=== PATIENT | female | born 1990 | race Caucasian/White ===

== ENCOUNTER 2017-07-09 07:37 | Emergency (ER) | payer MEDICAID, OTHER ==
[~2017-07-09] VITALS: Ht 180.3 cm; Wt 184.2 kg
[~2017-07-09 07:37] MED LIST: ALBUAER3 INH; AZIT250T3 PO; GABA100C4 PO; PERC10TA27 PO; PRED20 PO
[2017-07-09 07:42] VITALS: BP 166/95; PULSE 77; RESP 16; TEMP 99.1; O2SAT 100
[2017-07-09] MEDS ORDERED: ERYT250C PO (07:58)
[2017-07-09] MEDS ORDERED: TRAM50TA PO (07:58)
--- NOTE | 2017-07-09 08:00 | PD ---
HPI Chief Complaint: Oral / Dental Pain or Problem Time Seen by Provider: 07:51 Travel History International Travel<30 days: No Contact w/Intl Traveler<30days: No Traveled to known affect area: No History of Present Illness HPI This patient complains of dental pain. Has a right bottom jaw molar that's mostly rotted out. She is having difficulty arranging dental care. No injury or fever. Symptoms severity is moderate PFSH Past Medical History Medical History: Denies Significant Hx Asthma: Yes Bipolar Disorder: Yes Anxiety: Yes Depression: Yes High Cholesterol: Yes Diminished Hearing: No Deep Vein Thrombosis: Yes (RIGHT ARM: JANUARY 2016) Hypertension: Yes Kidney Stones: Yes Musculoskeletal: Yes (MULTIPLE FX'S: "BROKEN LEGS, ANKLES, ARMS AND RIBS" ) Immunizations Current: Yes Migraines: Yes Pneumonia: Yes Thyroid Disease: Yes (HYPOTHYROIDISM?) ?: Unknown : 0 Past Surgical History Surgical History: No Previous Surgery Genitourinary Surgery: Yes (KIDNEY TRANSPLANT AT 9 MONTHS OF AGE) Oral Surgery: Yes (FRACTURED TEETH) Social History Alcohol Use: No Tobacco Use: Yes (10/10 PPD) Substance Use: No Allergies-Medications (Allergen,Severity, Reaction): Coded Allergies: acetaminophen (Unverified Allergy, Severe, RESP. FAILURE, 07/09/17) penicillin G (Unverified Allergy, Severe, Shortness of Breath, 07/09/17) propoxyphene (Unverified Allergy, Severe, RESP. FAILURE, 07/09/17) iodine (Unverified Allergy, Mild, RASH, 07/09/17) potassium iodide (Unverified Allergy, Mild, RASH, 07/09/17) povidone-iodine (Unverified Allergy, Mild, RASH, 07/09/17) sodium iodide (Unverified Allergy, Mild, RASH, 07/09/17) sodium iodide (Unverified Allergy, Mild, RASH, 07/09/17) Reported Meds & Prescriptions Reported Meds & Active Scripts Active No Active Prescriptions or Reported Medications Review of Systems General / Constitutional: No: Fever Eyes: No: Visual changes HENT: Positive: Dental Difficulties, No: Headaches Cardiovascular: No: Chest Pain or Discomfort Respiratory: No: Shortness of Breath Gastrointestinal: No: Abdominal Pain Genitourinary: No: Dysuria Musculoskeletal: No: Pain Skin: No Rash Neurologic: No: Weakness Psychiatric: No: Depression Endocrine: No: Polydipsia Hematologic/Lymphatic: No: Easy Bruising Physical Exam Narrative NECK: Symmetrical appearance, midline trachea. No mass or crepitus. Thyroid without enlargement, tenderness, or mass. SKIN: Focused skin assessment reveals no rash or ulcers. Skin is warm and dry. Palpation shows no induration or nodules. Oral cavity: Right rear bottom jaw molar is rotted away. Surrounding gingiva looks pink and healthy. No abscess noted. Data Data Last Documented VS Vital Signs Date Time Temp Pulse Resp B/P (MAP) Pulse Ox O2 Delivery O2 Flow Rate FiO2 07/09/17 07:42 99.1 77 16 166/95 (118) 100 MDM Medical Decision Making Medical Screen Exam Complete: Yes Emergency Medical Condition: Yes Medical Record Reviewed: Yes Differential Diagnosis Cavity, gingivitis, gingival abscess Narrative Course I have reviewed the patient's electronic medical record. I wrote her some erythromycin given her penicillin allergy and something for pain. Needs dental follow-up. Diagnosis Primary Impression: Pain, dental Additional Instructions: The patient was advised to follow up with dentist . The patient was warned about potential sedation for the medications they will receive on prescription. Med/Other Pt SpecificInfo: Prescription(s) given Scripts Erythromycin Base (Erythromycin) 250 Mg Capsule.dr 250 MG PO Q8HR, #20 Prov: Rodolfo Walter MD 07/09/17 Tramadol (Tramadol) 50 Mg Tab 50 MG PO Q6H Y for PAIN, #20 TAB 0 Refills Prov: Rodolfo Walter MD 07/09/17 Disposition: 01 DISCHARGE HOME Condition: Stable Rodolfo Walter MD Jul 09, 2017 08:00
== END 2017-07-09 08:17 | disposition home or self-care (01) ==
LOC: PHED 07:37
DX: K08.89 Other specified disorders of teeth and supporting structures (principal); E78.00 Pure hypercholesterolemia, unspecified; I10 Essential (primary) hypertension; J45.909 Unspecified asthma, uncomplicated; Z86.718 Personal history of other venous thrombosis and embolism; Z88.0 Allergy status to penicillin; F17.210 Nicotine dependence, cigarettes, uncomplicated
CPT/HCPCS: 99284

== ENCOUNTER 2018-01-04 04:03 | Emergency (ER) | payer OTHER ==
[~2018-01-04] VITALS: Ht 180.3 cm; Wt 167.0 kg
[~2018-01-04 04:03] MED LIST changes: -ALBUAER3 INH; -AZIT250T3 PO; +ERYT250C PO; -GABA100C4 PO; -PERC10TA27 PO; -PRED20 PO; +TRAM50TA PO
[2018-01-04 04:12] VITALS: BP 130/90; PULSE 105; RESP 18; TEMP 98.3; O2SAT 98
[2018-01-04] MEDS ORDERED: LIDOCAINE 1%/EPINEPHrine 1:100,000 SOLN 20 ML VIAL ONE (04:40)
[2018-01-04] MEDS ORDERED: LIDOCAINE 2%/EPINEPHrine 1:100,000 30ML MDV INFIL ONE (04:45)
[2018-01-04] MEDS ORDERED: DOXY100C PO (04:55)
[2018-01-04] MEDS ORDERED: BACT800T5 PO (04:55)
[2018-01-04] MEDS ORDERED: TRAM50TA PO (04:58)
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
[2018-01-04] MEDS ORDERED: oxyCODONE/ACETAMINOPHEN 7.5 MG/325 MG TAB PO ONE (05:00)
[2018-01-04] MEDS ORDERED: SULFAMETHOXAZOLE-TRIMETHOPRIM DS 800-160 MG TAB PO ONE (05:15)
[2018-01-04] MEDS ORDERED: DOXYCYCLINE HYCLATE 100 MG CAP PO ONE (05:15)
== END 2018-01-04 05:31 | disposition home or self-care (01) ==
LOC: PHED 04:03
DX: L02.413 Cutaneous abscess of right upper limb (principal); L03.113 Cellulitis of right upper limb; F17.200 Nicotine dependence, unspecified, uncomplicated
CPT/HCPCS: 10060